=== PATIENT | male | born 1955 | race Caucasian/White ===

== ENCOUNTER → 2017-02-14 | Outpatient (CLI) | payer BC ==
[~2017-02-14] MED LIST: ALBUTEROL17 GM; ASPIRINEC PO; LORTAB 10/500 T1 TAB; NAMENDA10 MG; OXYCONTIN PO; PRILOSEC PO
--- NOTE | ~2017-02-14 | CT138 ---
[facility] A Service of [facility] RADIOLOGY TEXT RESULTS PATIENT: JEFFERY VILLAFANA LOCATION: [facility] : 55 UNIT #: [id number] AGE: [address]: Ronak Gresham MD SEX: M ORDER DR: [id number] [place] [id number] O MR#: [id number] Acc #: [id number] NAME: JEFFERY VILLAFANA : 1955 SEX: M STUDY DATE/TIME: 02/14/2017 9:21 UNIT: [facility] ROOM: STUDY DESCRIPTION: CT Lung screening initial Attending Physician: Ronak Gresham M.D. Referring Physician: Ronak Gresham M.D. Ordering Physician: Ronak Gresham M.D. Primary Care Physician: Dwight Scott M.D. MEDICAL IMAGING REPORT This report is preliminary unless electronic signature is present. EXAM CT lung cancer screening. INDICATIONS Lung cancer screening 30+ pack year smoking history. PROCEDURE Unenhanced low-dose CT of the chest performed per lung cancer screening protocol. CTDI 2.96 mg total DLP 132 mg centimeters. TECHNIQUE This CT exam was performed with one or more of the following radiation dose reduction techniques: automatic exposure control, adjustment of mA and/or kV according to patient size, and iterative reconstruction. COMPARISON STUDIES None. FINDINGS Diffuse subpleural interstitial prominence could represent subpleural scarring or mild interstitial fibrosis. There is no honeycombing. No suspicious pulmonary nodule or dense consolidation. No adenopathy. Bilateral gynecomastia. No acute findings are seen in the included upper abdomen. 2.6 cm benign right adrenal adenoma. No aggressive appearing bone lesion. IMPRESSION 1. No suspicious pulmonary nodule. 2. Mild diffuse subpleural scarring versus early interstitial fibrosis. There is no honeycombing. 3. Other incidental findings are detailed above. 4. Lung-RADS category 1 negative. Per the ACR Lung-RADS recommendation [facility] A Service [facility] RADIOLOGY TEXT RESULTS PATIENT: JEFFERY VILLAFANA LOCATION: [facility] : 55 UNIT #: [id number] AGE: [address]: Ronak Gresham MD SEX: M ORDER DR: suggest patient continue with annual low-dose lung cancer screening. Dictated by... Giovanny Morton M.D. THIS IS AN ELECTRONICALLY VERIFIED REPORT Giovanny Morton M.D. at 02/15/2017 2:37 PM RENATED/rian TD: 02/14/2017 12:37 JOB #: [id number] MEDICAL IMAGING REPORT Page 1 of 1
== END | disposition home or self-care (01) ==
LOC: SCT 09:00
DX: F17.200 Nicotine dependence, unspecified, uncomplicated (principal)
CPT/HCPCS: G0297